=== PATIENT | male | born 1985 | race Hispanic/Latino ===

== ENCOUNTER → 2024-06-21 | Outpatient (CLI) | payer OTHER ==
--- NOTE | 2024-06-21 11:32 | HMCIMG ---
US ABDOMINAL RUQ\E\LTD HISTORY: UNSPECIFIED VIRAL HEPATITIS C WITHOUT HEPATIC COMPARISON: None FINDINGS: There is normal sonographic appearance of the liver. There are no focal liver masses. The liver is not enlarged.There is a normal-appearing gallbladder. Common duct is normal. Right kidney is normal with no evidence of mass, hydronephrosis or stone.The pancreas appears normal as well. IMPRESSION: 1. Normal right upper quadrant ultrasound.
== END | disposition home or self-care (01) ==
LOC: RAH 08:26 → EEVIPCON 08:26
PROVIDERS: ATTEND Physical Medicine & Rehabilitation
DX: B19.20 Unspecified viral hepatitis C without hepatic coma (principal)
CPT/HCPCS: 76705